=== PATIENT | male | born 1960 | race African-American/Black ===

== ENCOUNTER 2018-01-19 17:20 | Inpatient (IN) | payer BC ==
[2018-01-19] MEDS: IV NORMAL SALINE 1000ML BAG 1,000 ML IV ×4 (18:10→23:06)
[2018-01-19 18:13] LABS: ADD MAN DIFF? NO
[2018-01-19 18:14] LABS: POC GLUCOSE 323 mg/dL (70-99)
[2018-01-19 18:15] LABS: BASO % 0 % (0-3); EOS # 0.1 x10^3/uL (0.0-0.7); EOS % 1 % (0-3); HEMATOCRIT 34.3 % (39.0-53.0); HEMOGLOBIN 11.8 g/dL (13.0-17.5); LYMPH # 1.6 x10^3/uL (1.0-4.8); LYMPH % 20 % (24-48); MEAN CORPUSCULAR HEMOGLOBIN 32 pg (25-35); MEAN CORPUSCULAR HGB CONC 35 g/dL (31-37); MEAN CORPUSCULAR VOLUME 92 fL (79-100); MONO # 0.5 x10^3/uL (0.0-1.1); MONO % 6 % (0-9); NEUT % 73 % (31-73); PLATELET COUNT 122 x10^3/uL (140-400); RED BLOOD COUNT 3.71 x10^6/uL (4.30-5.70); RED CELL DISTRIBUTION WIDTH 14.8 % (11.5-14.5); WHITE BLOOD COUNT 8.2 x10^3/uL (4.0-11.0)
[2018-01-19] MEDS ORDERED: MORPHINE SULFATE 10 MG/ML VIAL. IV (18:15)
[2018-01-19 18:19] LABS: BASE EXCESS ABG 0 mmol/L (-3-3); HCO3 ABG 25 mmol/L (21-28); PCO2 ABG 39 mmHg (35-46); PH ABG 7.42 (7.35-7.45); PO2 ABG 70 mmHg (75-108); SAT O2 ABG 93 % (92-99)
[2018-01-19 18:21] LABS: FIO2 ABG 21
[2018-01-19] MEDS ORDERED: MORPHINE SULFATE 4 MG/ML DISP.SYRIN. IV (18:30)
[2018-01-19 18:34] LABS: ACETONE NEG (NEG)
[2018-01-19 18:34] LABS: ANION GAP 11 (6-14); BLOOD UREA NITROGEN 12 mg/dL (8-26); BUN/CREATININE RATIO 6 (6-20); CALCIUM 8.7 mg/dL (8.5-10.1); CARBON DIOXIDE 27 mmol/L (21-32); CHLORIDE 95 mmol/L (98-107); GFR 34.7; GLUCOSE 331 mg/dL (70-99); POTASSIUM 3.4 mmol/L (3.5-5.1); SODIUM 133 mmol/L (136-145)
[2018-01-19 18:35] LABS: ETHANOL < 10 mg/dL (0-10)
[2018-01-19 18:37] LABS: BILIRUBIN,URINE NEGATIVE (NEG); CLARITY,URINE CLOUDY; COLOR,URINE YELLOW; GLUCOSE,URINE >=1000 mg/dL (NEG); NITRITE,URINE NEGATIVE (NEG); PROTEIN,URINE NEGATIVE (NEG-TRACE); UROBILINOGEN,URINE 0.2 mg/dL (0.2 mg/dL)
[2018-01-19 18:40] LABS: ALBUMIN 3.2 g/dL (3.4-5.0); ALBUMIN/GLOBULIN RATIO 0.9 (1.0-1.7); ALK PHOS 56 U/L (46-116); ALT (SGPT) 82 U/L (16-63); AST (SGOT) 56 U/L (15-37); TOTAL PROTEIN 6.9 g/dL (6.4-8.2)
[2018-01-19 18:42] LABS: LACTIC ACID 1.7 mmol/L (0.4-2.0)
[2018-01-19 18:46] LABS: BACTERIA,URINE 0 /HPF (0-FEW); WBC,URINE 0 /HPF (0-4)
[2018-01-19 19:25] LABS: BARBITURATES NEG (NEG); BENZODIAZEPINES NEG (NEG); CANNABINOIDS NEG (NEG); COCAINE NEG (NEG); METHADONE NEG (NEG); OPIATES NEG (NEG); PHENCYCLIDINE NEG (NEG)
[2018-01-19 19:29] LABS: AMPHETAMINE/METHAMPHETAMINE NEG (NEG); ETHANOL, URINE NEG (NEG)
[2018-01-19] MEDS ORDERED: PIPERACILLIN/TAZOBACTAM 3.375 GM in IV NORMAL SALINE 50ML 50 ML IV (19:30)
[2018-01-19] MEDS ORDERED: THIAMINE 100 MG in IV DEXTROSE 5% 50 ML IV (19:30)
[2018-01-19 19:41] LABS: THYROID STIM HORMONE (TSH) 4.112 uIU/mL (0.358-3.74)
[2018-01-19] MEDS ORDERED: ONDANSETRON PF 4 MG/2 ML VIAL. IV (19:45)
[2018-01-19] MEDS ORDERED: DEXTROSE 50% 25 GM / 50ML DISP.SYRIN. IV (19:45)
[2018-01-19 19:53] LABS: MAGNESIUM 1.8 mg/dL (1.8-2.4)
[2018-01-19 20:42] LABS: AMMONIA 67 mcmol/L (11-34)
[2018-01-19] MEDS: THIAMINE 100 MG in IV NORMAL SALINE 50ML 50 ML IV (20:58)
[2018-01-19] MEDS: VANCOMYCIN 2 GM in IV 1/2 NORMAL SALINE 500 ML IV (20:58)
[2018-01-19] MEDS: PIPERACILLIN/TAZOBACTAM 3.375 GM in IV NORMAL SALINE 50ML 50 ML IV ×2 (21:00→23:38)
[2018-01-19] MEDS: PIP/TAZO PER PHARMACY MC (21:00)
[2018-01-19] MEDS: INSULIN ASPART 300 UNITS/3 ML INSULN.PEN SQ (23:14)
[2018-01-20] MEDS: VANCOMYCIN PER PHARMACY MC ×2 (01:29→15:53)
[2018-01-20] MEDS: IV NORMAL SALINE 1000ML BAG 1,000 ML IV (05:18)
[2018-01-20] MEDS: PIPERACILLIN/TAZOBACTAM 3.375 GM in IV NORMAL SALINE 50ML 50 ML IV ×3 (05:18→18:18)
[2018-01-20] MEDS ORDERED: INSULIN ASPART 300 UNITS/3 ML INSULN.PEN SQ (08:00)
[2018-01-20 08:03] LABS: POC GLUCOSE 229 mg/dL (70-99)
[2018-01-20] MEDS: INSULIN ASPART 300 UNITS/3 ML INSULN.PEN SQ ×5 (08:03→17:17)
[2018-01-20 08:38] LABS: ADD MAN DIFF? NO
[2018-01-20 09:00] LABS: BASO % 1 % (0-3); EOS # 0.1 x10^3/uL (0.0-0.7); EOS % 3 % (0-3); HEMATOCRIT 32.3 % (39.0-53.0); HEMOGLOBIN 11.2 g/dL (13.0-17.5); LYMPH # 1.4 x10^3/uL (1.0-4.8); LYMPH % 31 % (24-48); MEAN CORPUSCULAR HEMOGLOBIN 32 pg (25-35); MEAN CORPUSCULAR HGB CONC 35 g/dL (31-37); MEAN CORPUSCULAR VOLUME 92 fL (79-100); MONO # 0.4 x10^3/uL (0.0-1.1); MONO % 8 % (0-9); NEUT # 2.5 x10^3uL (1.8-7.7); NEUT % 57 % (31-73); PLATELET COUNT 115 x10^3/uL (140-400); RED BLOOD COUNT 3.51 x10^6/uL (4.30-5.70); WHITE BLOOD COUNT 4.4 x10^3/uL (4.0-11.0)
[2018-01-20] MEDS ORDERED: fentaNYL PF VIAL 100 MCG/2 ML VIAL IV (09:15)
[2018-01-20] MEDS ORDERED: ACETAMINOPHEN 500 MG TABLET PO (09:15)
[2018-01-20] MEDS ORDERED: QUEtiapine 25 MG TABLET. PO (09:15)
[2018-01-20 09:16] LABS: ALBUMIN 2.9 g/dL (3.4-5.0); ALBUMIN/GLOBULIN RATIO 0.8 (1.0-1.7); ALK PHOS 53 U/L (46-116); ALT (SGPT) 69 U/L (16-63); ANION GAP 7 (6-14); AST (SGOT) 38 U/L (15-37); BLOOD UREA NITROGEN 8 mg/dL (8-26); BUN/CREATININE RATIO 5 (6-20); CALCIUM 8.4 mg/dL (8.5-10.1); CARBON DIOXIDE 28 mmol/L (21-32); CHLORIDE 102 mmol/L (98-107); CREATININE 1.5 mg/dL (0.7-1.3); GFR 58.6; GLUCOSE 243 mg/dL (70-99); POTASSIUM 3.4 mmol/L (3.5-5.1); SODIUM 137 mmol/L (136-145); TOTAL BILIRUBIN 0.8 mg/dL (0.2-1.0); TOTAL PROTEIN 6.5 g/dL (6.4-8.2)
[2018-01-20 09:54] LABS: LIPASE 361 U/L (73-393)
[2018-01-20] MEDS: IPRATRPIUM/ALBUTEROL 0.5/2.5MG 3 ML NEBU. NEB ×4 (10:00→19:34)
[2018-01-20] MEDS: buPROPion XL 150 MG TAB.ER.24H. PO (10:08)
[2018-01-20] MEDS: LEVOTHYROXINE 50 MCG TABLET PO (10:08)
[2018-01-20] MEDS: MAGNESIUM OXIDE 400 MG TABLET PO ×3 (10:09→21:23)
[2018-01-20] MEDS: OMEGA-3 FATTY ACIDS/FISH OIL 1,000 MG CAPSULE. PO (10:09)
[2018-01-20] MEDS: PANTOPRAZOLE 40 MG TABLET.DR. PO (10:09)
[2018-01-20] MEDS: MONTELUKAST SODIUM 10 MG TABLET. PO (10:09)
[2018-01-20] MEDS: LACTOBACILLUS RHAMNOSUS GG 1 CAPSULE. PO ×2 (10:09→21:23)
[2018-01-20] MEDS: MULTIVITAMIN I-VITE TABLET. PO (10:09)
[2018-01-20] MEDS: ASPIRIN ENTERIC COATED 81 MG TABLET.DR. PO (10:09)
[2018-01-20 10:28] LABS: AMMONIA 23 mcmol/L (11-34)
[2018-01-20 12:04] LABS: POC GLUCOSE 268 mg/dL (70-99)
[2018-01-20 12:16] LABS: VITAMIN-B12 1816 pg/mL (247-911)
[2018-01-20 12:36] LABS: FREE T4 0.85 ng/dL (0.76-1.46)
[2018-01-20 14:20] LABS: POC GLUCOSE 256 mg/dL (70-99)
[2018-01-20] MEDS: POTASSIUM CHLORIDE 20 MEQ TABLET.ER. PO (14:22)
[2018-01-20] MEDS: MULTIVIT INFUSN,ADULT 4,VIT K 10 ML, THIAMINE 100 MG, FOLIC ACID 1 MG in IV NORMAL SALI... IV (14:22)
[2018-01-20] MEDS: QUEtiapine 100 MG TABLET. PO ×2 (14:23→21:24)
[2018-01-20] MEDS: amLODIPine BESYLATE 5 MG TABLET PO (14:23)
[2018-01-20] MEDS: LOSARTAN POTASSIUM 50 MG TABLET. PO (14:24)
[2018-01-20] MEDS: VANCOMYCIN 1.75 GM in IV 1/2 NORMAL SALINE 500 ML IV (16:02)
[2018-01-20] MEDS: HYDROcodone/APAP 5/325MG 1 TAB TABLET PO ×2 (16:19→23:07)
[2018-01-20 16:21] LABS: POC GLUCOSE 253 mg/dL (70-99)
[2018-01-20] MEDS: CALCIUM CARBONATE 500 MG TABLET PO (17:19)
[2018-01-20] MEDS: CHOLECALCIFEROL (VITAMIN D3) 1,000 UNIT TABLET PO (17:19)
[2018-01-20] MEDS ORDERED: QUEtiapine 100 MG TABLET. PO (21:00)
[2018-01-20 21:23] LABS: POC GLUCOSE 164 mg/dL (70-99)
[2018-01-20] MEDS: CETIRIZINE HCL 10 MG TABLET. PO (21:23)
[2018-01-20] MEDS: INSULIN DETEMIR 300 UNITS/3 ML INSULN.PEN. SQ (21:30)
[2018-01-20] MEDS ORDERED: VANCOMYCIN 1.75 GM in IV 1/2 NORMAL SALINE 500 ML IV (22:00)
[2018-01-21] MEDS: PIPERACILLIN/TAZOBACTAM 3.375 GM in IV NORMAL SALINE 50ML 50 ML IV ×3 (00:09→11:57)
[2018-01-21] MEDS: VANCOMYCIN 1.75 GM in IV 1/2 NORMAL SALINE 500 ML IV (04:10)
[2018-01-21 05:06] LABS: ADD MAN DIFF? NO
[2018-01-21 05:18] LABS: BASO % 1 % (0-3); EOS # 0.1 x10^3/uL (0.0-0.7); EOS % 2 % (0-3); HEMATOCRIT 32.2 % (39.0-53.0); HEMOGLOBIN 11.1 g/dL (13.0-17.5); LYMPH # 1.6 x10^3/uL (1.0-4.8); LYMPH % 33 % (24-48); MEAN CORPUSCULAR HEMOGLOBIN 32 pg (25-35); MEAN CORPUSCULAR HGB CONC 35 g/dL (31-37); MEAN CORPUSCULAR VOLUME 93 fL (79-100); MONO # 0.5 x10^3/uL (0.0-1.1); MONO % 10 % (0-9); NEUT # 2.6 x10^3uL (1.8-7.7); NEUT % 54 % (31-73); PLATELET COUNT 123 x10^3/uL (140-400); RED BLOOD COUNT 3.46 x10^6/uL (4.30-5.70); RED CELL DISTRIBUTION WIDTH 15.2 % (11.5-14.5); WHITE BLOOD COUNT 4.8 x10^3/uL (4.0-11.0)
[2018-01-21 05:46] LABS: ALBUMIN 2.8 g/dL (3.4-5.0); ALBUMIN/GLOBULIN RATIO 0.8 (1.0-1.7); ALK PHOS 50 U/L (46-116); ALT (SGPT) 53 U/L (16-63); ANION GAP 6 (6-14); AST (SGOT) 30 U/L (15-37); BLOOD UREA NITROGEN 6 mg/dL (8-26); BUN/CREATININE RATIO 4 (6-20); CALCIUM 8.7 mg/dL (8.5-10.1); CARBON DIOXIDE 29 mmol/L (21-32); CHLORIDE 107 mmol/L (98-107); CREATININE 1.5 mg/dL (0.7-1.3); GFR 58.6; GLUCOSE 147 mg/dL (70-99); POTASSIUM 3.3 mmol/L (3.5-5.1); SODIUM 142 mmol/L (136-145); TOTAL BILIRUBIN 0.5 mg/dL (0.2-1.0); TOTAL PROTEIN 6.4 g/dL (6.4-8.2)
[2018-01-21] MEDS: HYDROcodone/APAP 5/325MG 1 TAB TABLET PO ×3 (06:05→18:29)
[2018-01-21] MEDS: PANTOPRAZOLE 40 MG TABLET.DR. PO (07:26)
[2018-01-21] MEDS: LEVOTHYROXINE 50 MCG TABLET PO (07:27)
[2018-01-21] MEDS: INSULIN ASPART 300 UNITS/3 ML INSULN.PEN SQ ×6 (07:30→17:13)
[2018-01-21] MEDS: IPRATRPIUM/ALBUTEROL 0.5/2.5MG 3 ML NEBU. NEB ×4 (07:40→19:08)
[2018-01-21] MEDS: MULTIVIT INFUSN,ADULT 4,VIT K 10 ML, THIAMINE 100 MG, FOLIC ACID 1 MG in IV NORMAL SALI... IV (08:35)
[2018-01-21 08:36] LABS: POC GLUCOSE 125 mg/dL (70-99)
[2018-01-21] MEDS: LOSARTAN POTASSIUM 50 MG TABLET. PO (08:36)
[2018-01-21] MEDS: MAGNESIUM OXIDE 400 MG TABLET PO ×3 (08:36→20:56)
[2018-01-21] MEDS: CALCIUM CARBONATE 500 MG TABLET PO (08:37)
[2018-01-21] MEDS: MONTELUKAST SODIUM 10 MG TABLET. PO (08:37)
[2018-01-21] MEDS: ASPIRIN ENTERIC COATED 81 MG TABLET.DR. PO (08:37)
[2018-01-21] MEDS: buPROPion XL 150 MG TAB.ER.24H. PO (08:37)
[2018-01-21] MEDS: LACTOBACILLUS RHAMNOSUS GG 1 CAPSULE. PO ×2 (08:37→20:56)
[2018-01-21] MEDS: OMEGA-3 FATTY ACIDS/FISH OIL 1,000 MG CAPSULE. PO (08:37)
[2018-01-21] MEDS: CHOLECALCIFEROL (VITAMIN D3) 1,000 UNIT TABLET PO (08:37)
[2018-01-21] MEDS: QUEtiapine 100 MG TABLET. PO ×2 (08:37→20:57)
[2018-01-21] MEDS: amLODIPine BESYLATE 5 MG TABLET PO (08:38)
[2018-01-21] MEDS: MULTIVITAMIN I-VITE TABLET. PO (08:40)
[2018-01-21] MEDS: ONDANSETRON PF 4 MG/2 ML VIAL. IV (09:21)
[2018-01-21] MEDS: POTASSIUM CHLORIDE 20 MEQ TABLET.ER. PO (10:06)
[2018-01-21 11:59] LABS: POC GLUCOSE 201 mg/dL (70-99)
[2018-01-21 16:46] LABS: POC GLUCOSE 139 mg/dL (70-99)
[2018-01-21] MEDS: AMOXICILLIN/K CLAV 875/125MG TABLET. PO (20:56)
[2018-01-21] MEDS: CETIRIZINE HCL 10 MG TABLET. PO (20:57)
[2018-01-21] MEDS: INSULIN DETEMIR 300 UNITS/3 ML INSULN.PEN. SQ (21:03)
[2018-01-21 21:40] LABS: POC GLUCOSE 113 mg/dL (70-99)
[2018-01-22 03:16] LABS: VANC TR 11.7 mcg/mL (10.0-20.0)
[2018-01-22 03:35] LABS: ALBUMIN 2.7 g/dL (3.4-5.0); ALBUMIN/GLOBULIN RATIO 0.7 (1.0-1.7); ALK PHOS 51 U/L (46-116); ALT (SGPT) 43 U/L (16-63); ANION GAP 8 (6-14); AST (SGOT) 22 U/L (15-37); BLOOD UREA NITROGEN 3 mg/dL (8-26); BUN/CREATININE RATIO 2 (6-20); CARBON DIOXIDE 27 mmol/L (21-32); CHLORIDE 111 mmol/L (98-107); CREATININE 1.7 mg/dL (0.7-1.3); GFR 50.7; GLUCOSE 85 mg/dL (70-99); POTASSIUM 3.2 mmol/L (3.5-5.1); SODIUM 146 mmol/L (136-145); TOTAL BILIRUBIN 0.4 mg/dL (0.2-1.0); TOTAL PROTEIN 6.4 g/dL (6.4-8.2)
[2018-01-22 04:29] LABS: ADD MAN DIFF? NO
[2018-01-22 04:33] LABS: BASO % 1 % (0-3); EOS # 0.1 x10^3/uL (0.0-0.7); EOS % 3 % (0-3); HEMATOCRIT 32.9 % (39.0-53.0); HEMOGLOBIN 11.2 g/dL (13.0-17.5); LYMPH # 1.5 x10^3/uL (1.0-4.8); LYMPH % 34 % (24-48); MEAN CORPUSCULAR HEMOGLOBIN 32 pg (25-35); MEAN CORPUSCULAR HGB CONC 34 g/dL (31-37); MEAN CORPUSCULAR VOLUME 95 fL (79-100); MONO # 0.4 x10^3/uL (0.0-1.1); MONO % 10 % (0-9); NEUT # 2.3 x10^3uL (1.8-7.7); NEUT % 52 % (31-73); PLATELET COUNT 141 x10^3/uL (140-400); RED BLOOD COUNT 3.48 x10^6/uL (4.30-5.70); RED CELL DISTRIBUTION WIDTH 15.4 % (11.5-14.5); WHITE BLOOD COUNT 4.4 x10^3/uL (4.0-11.0)
[2018-01-22] MEDS: IPRATRPIUM/ALBUTEROL 0.5/2.5MG 3 ML NEBU. NEB ×2 (07:21→11:50)
[2018-01-22] MEDS: INSULIN ASPART 300 UNITS/3 ML INSULN.PEN SQ ×4 (07:30→11:30)
[2018-01-22 07:59] LABS: POC GLUCOSE 100 mg/dL (70-99)
[2018-01-22] MEDS: MULTIVITAMIN I-VITE TABLET. PO (09:27)
[2018-01-22] MEDS: MONTELUKAST SODIUM 10 MG TABLET. PO (09:28)
[2018-01-22] MEDS: OMEGA-3 FATTY ACIDS/FISH OIL 1,000 MG CAPSULE. PO (09:28)
[2018-01-22] MEDS: AMOXICILLIN/K CLAV 875/125MG TABLET. PO (09:28)
[2018-01-22] MEDS: amLODIPine BESYLATE 5 MG TABLET PO (09:28)
[2018-01-22] MEDS: QUEtiapine 100 MG TABLET. PO (09:28)
[2018-01-22] MEDS: LEVOTHYROXINE 50 MCG TABLET PO (09:28)
[2018-01-22] MEDS: MAGNESIUM OXIDE 400 MG TABLET PO (09:28)
[2018-01-22] MEDS: ASPIRIN ENTERIC COATED 81 MG TABLET.DR. PO (09:28)
[2018-01-22] MEDS: buPROPion XL 150 MG TAB.ER.24H. PO (09:28)
[2018-01-22] MEDS: POTASSIUM CHLORIDE 20 MEQ TABLET.ER. PO ×2 (09:29→11:56)
[2018-01-22] MEDS: CHOLECALCIFEROL (VITAMIN D3) 1,000 UNIT TABLET PO (09:29)
[2018-01-22] MEDS: PANTOPRAZOLE 40 MG TABLET.DR. PO (09:29)
[2018-01-22] MEDS: LOSARTAN POTASSIUM 50 MG TABLET. PO (09:30)
[2018-01-22] MEDS: CALCIUM CARBONATE 500 MG TABLET PO (09:30)
[2018-01-22] MEDS: LACTOBACILLUS RHAMNOSUS GG 1 CAPSULE. PO (09:30)
[2018-01-22] MEDS: MULTIVIT INFUSN,ADULT 4,VIT K 10 ML, THIAMINE 100 MG, FOLIC ACID 1 MG in IV NORMAL SALI... IV (10:34)
[2018-01-25 06:26] LABS: POC GLUCOSE 169 mg/dL (70-99)
== END 2018-01-22 12:49 | disposition home or self-care (01) | DRG 682 ==
LOC: ER 17:20 → 5 NORTH 19:15
PROVIDERS: Internal Medicine
DX: N17.0 Acute kidney failure with tubular necrosis (principal); G93.41 Metabolic encephalopathy; E11.42 Type 2 diabetes mellitus with diabetic polyneuropathy; D69.6 Thrombocytopenia, unspecified; E11.22 Type 2 diabetes mellitus with diabetic chronic kidney disease; E11.40 Type 2 diabetes mellitus with diabetic neuropathy, unspecified; L03.315 Cellulitis of perineum; E03.9 Hypothyroidism, unspecified; E11.65 Type 2 diabetes mellitus with hyperglycemia; E55.9 Vitamin D deficiency, unspecified; E66.9 Obesity, unspecified; Z68.33 Body mass index [BMI] 33.0-33.9, adult; E78.5 Hyperlipidemia, unspecified; E87.6 Hypokalemia; G47.30 Sleep apnea, unspecified; I12.9 Hypertensive chronic kidney disease with stage 1 through stage 4 chronic kidney disease, or unspecified chronic kidney disease; J44.9 Chronic obstructive pulmonary disease, unspecified; N18.2 Chronic kidney disease, stage 2 (mild); N40.0 Benign prostatic hyperplasia without lower urinary tract symptoms; Z88.8 Allergy status to other drugs, medicaments and biological substances; Z91.14 Patient's other noncompliance with medication regimen; F10.20 Alcohol dependence, uncomplicated; F41.9 Anxiety disorder, unspecified; F32.9 Major depressive disorder, single episode, unspecified; E78.00 Pure hypercholesterolemia, unspecified; K72.90 Hepatic failure, unspecified without coma; R26.9 Unspecified abnormalities of gait and mobility; K21.9 Gastro-esophageal reflux disease without esophagitis; M10.9 Gout, unspecified; G89.29 Other chronic pain; M54.5 Low back pain; D72.819 Decreased white blood cell count, unspecified
CPT/HCPCS: 36415; 36600; 70450; 70551; 71045; 80053; 80202; 80307; 81001; 82010; 82140; 82306; 82607; 82805; 82962; 83605; 83690; 83735; 84439; 84443; 84481; 85025; 87040; 93005; 94640; 94760; 95816; 96361; 96365; 96366; 96368; 97161-GP; 99285; 99285-25; G0480; J1815; J2405; J2543; J3370; J7030; J7620

== ENCOUNTER → 2018-01-31 | Outpatient (CLI) | payer BC ==
[2018-01-31 12:21] LABS: POC GLUCOSE 176 mg/dL (70-99)
== END | disposition home or self-care (01) ==
LOC: PMGWOUND 11:53
DX: S31.119D Laceration without foreign body of abdominal wall, unspecified quadrant without penetration into peritoneal cavity, subsequent encounter (principal); F32.9 Major depressive disorder, single episode, unspecified; I25.10 Atherosclerotic heart disease of native coronary artery without angina pectoris; E03.9 Hypothyroidism, unspecified; E78.5 Hyperlipidemia, unspecified; E11.9 Type 2 diabetes mellitus without complications; I10 Essential (primary) hypertension; K21.9 Gastro-esophageal reflux disease without esophagitis; G47.33 Obstructive sleep apnea (adult) (pediatric); M19.90 Unspecified osteoarthritis, unspecified site; E66.9 Obesity, unspecified; Z68.33 Body mass index [BMI] 33.0-33.9, adult; Z87.891 Personal history of nicotine dependence; W19.XXXD Unspecified fall, subsequent encounter
CPT/HCPCS: 82962; 99213

== ENCOUNTER → 2018-02-14 | Outpatient (CLI) | payer BC | END | disposition home or self-care (01) | LOC: PMGWOUND 13:06 | DX: S31.119D Laceration without foreign body of abdominal wall, unspecified quadrant without penetration into peritoneal cavity, subsequent encounter (principal); I25.10 Atherosclerotic heart disease of native coronary artery without angina pectoris; K21.9 Gastro-esophageal reflux disease without esophagitis; E78.5 Hyperlipidemia, unspecified; E03.9 Hypothyroidism, unspecified; F32.9 Major depressive disorder, single episode, unspecified; E66.9 Obesity, unspecified; G47.33 Obstructive sleep apnea (adult) (pediatric); E11.9 Type 2 diabetes mellitus without complications; M19.90 Unspecified osteoarthritis, unspecified site; F41.9 Anxiety disorder, unspecified; J44.9 Chronic obstructive pulmonary disease, unspecified; E11.22 Type 2 diabetes mellitus with diabetic chronic kidney disease; I13.0 Hypertensive heart and chronic kidney disease with heart failure and stage 1 through stage 4 chronic kidney disease, or unspecified chronic kidney disease; N18.2 Chronic kidney disease, stage 2 (mild); I50.9 Heart failure, unspecified; G89.29 Other chronic pain; E78.00 Pure hypercholesterolemia, unspecified; E11.42 Type 2 diabetes mellitus with diabetic polyneuropathy; F10.20 Alcohol dependence, uncomplicated; Z87.891 Personal history of nicotine dependence; Z68.33 Body mass index [BMI] 33.0-33.9, adult; X58.XXXD Exposure to other specified factors, subsequent encounter | CPT/HCPCS: 99213 ==